=== PATIENT | male | born 2000 | race Caucasian/White ===

== ENCOUNTER 2020-01-25 12:41 | Inpatient (IN) ==
[2020-01-25] MEDS ORDERED: SODIUM CHLORIDE 0.9% 1000ML 1,000 ML IV ONE ×2 (13:10→13:32)
[2020-01-25] MEDS ORDERED: KETOROLAC 30 MG/ML VIAL IV STA (13:10)
[2020-01-25] MEDS ORDERED: ONDANSETRON INJ 2 MG/ML 2 ML VIAL IV STA (13:10)
--- NOTE | 2020-01-25 13:16 | Emergency Department Note ---
History of Present Illness General Chief Complaint: Abdominal Pain Stated Complaint: ABD PAIN, VOMITING, CHILLS Source: patient Mode of arrival: ambulatory Limitations: no limitations History of Present Illness Provider Complaint: abdominal pain Onset (ago): greater than 10 hour(s) Pain Consistency: constant Location: LLQ Radiation: L flank Migration to: no migration Severity: severe Maximum Pain Intensity: 9 Current Pain Intensity: 9 Quality: + sharp Relieved By: + movement Exacerbated By: + rest Associated Symptoms: + nausea, + vomiting, + chills and + dysuria Treatments prior to arrival: tylenol This 19-year-old male patient presents the emergency department today, ambulatory, complaining of abdominal pain which began last evening at approximately 8 PM. Patient states the pain is associated with chills and vomiting. The pain radiates to the left flank and also to the left groin. Patient states when he stands, the pain seems to radiate across the upper abdomen. The patient states earlier today, he curled up into a ball and the pain got worse and when he stretched it seemed to go away. The patient denies any recent physical activity or injury. He states he did have some dysuria last evening, but none today. He denies any documented fever. Patient denies any current hematuria, dysuria, urinary frequency, or urinary hesitancy. There is no chest pain or dyspnea. There is been no diarrhea or constipation. Last bowel movement was yesterday. Patient rates the pain a 9/10 and describes it as sharp. He did take Tylenol at 5 AM without relief. Home Medications Home Medications Medication Instructions Recorded Confirmed Type acetaminophen [Tylenol Extra 1,000 mg PO Q6H PRN 01/25/20 01/25/20 History Strength] fexofenadine [Alyce Allergy] 60 mg PO Q12H 01/25/20 01/25/20 History Allergies Allergy/AdvReac Type Severity Reaction Status Date / Time No Known Allergies Allergy Unverified 01/25/20 13:36 Past Med/Surg History Medical History No pertinent past medical history Social History Feels Safe at Home: Yes Smoking Status: Never smoker Review of Systems A total of 10 systems reviewed and were otherwise negative Physical Exam Vital Signs: Vital Signs - 24 hr 01/25/20 12:51 01/25/20 13:35 01/25/20 14:03 Temperature 37.0 C Temperature Source Oral Pulse Rate 103 H Pulse Rate [Finger ] 89 Respiratory Rate 20 20 Respiratory Effort / Characteristics Non-Labored Sponta neous Non-Labored Sponta neous Respiratory Depth Normal Normal Respiratory Patter n Regular Regular Blood Pressure 122/66 Blood Pressure [Le ft Arm] 111/59 L Blood Pressure Verenice n 84 Blood Pressure Verenice n [Left Arm] 76 Blood Pressure Pos ition [Left Arm] Lying Pulse Oximetry 96 100 99 Oxygen Delivery Me thod Room Air Room Air Room Air Sepsis Recent Feve r Within 48 Hours No Sepsis Action Take n by Nursing No Action Required 01/25/20 14:42 Temperature Temperature Source Pulse Rate Pulse Rate [Finger ] 68 Respiratory Rate 18 Respiratory Effort / Characteristics Non-Labored Sponta neous Respiratory Depth Normal Respiratory Patter n Regular Blood Pressure Blood Pressure [Le ft Arm] 105/69 Blood Pressure Verenice n Blood Pressure Verenice n [Left Arm] 81 Blood Pressure Pos ition [Left Arm] Lying Pulse Oximetry 100 Oxygen Delivery Me thod Sepsis Recent Feve r Within 48 Hours Sepsis Action Take n by Nursing Physical Exam: VITALS: Vitals are noted on the nurse's note and reviewed by myself. Vital signs stable. GENERAL: This is a 19-year-old white male, in no acute distress, nondiaphoretic, well-developed well-nourished. SKIN: The skin was without rashes, erythema, edema, or bruising. There is no tenting of the skin. Capillary refill less than 2 seconds. HEAD: Normocephalic atraumatic. EYES:Conjunctivae without injection, sclerae without icterus. NECK: Supple without nuchal rigidity. No lymphadenopathy. No JVD. HEART: Regular rate and rhythm without murmurs gallops or rubs. LUNGS: Clear to auscultation bilaterally without wheezes, rales or rhonchi. No retractions or accessory muscle use. ABDOMEN: Positive bowel sounds x 4. Normal tympanic percussion. Left lower quadrant tenderness palpation. Positive left CVA tenderness. Abdomen otherwise soft, nontender, without masses or organomegaly. Clark sign negative. No guarding or rebound tenderness. MUSCULOSKELETAL: No muscle atrophy, erythema, or edema noted. Full range of motion without joint tenderness in all extremities. No tenderness to palpation. Normal gait. Strength 5/5 throughout. NEURO: Patient was alert and oriented to person place and time. No focal neurological deficits. Course Course The patient was seen and evaluated as above. An order was placed for continuous cardiac monitoring. The monitor shows a sinus tachycardia at a rate of 103 bpm. IV access obtained, labs drawn. Patient medicated with IV fluids, Zofran, and Toradol. Imaging performed and reviewed by myself and radiologist as noted. Labs reviewed by myself. I discussed the findings with the patient at bedside. He was reassessed and not e []. []I discussed the case with my attending. Discharge instructions reviewed, the patient was discharged home in good condition. Administered Medications Discontinued Medications Sodium Chloride (Nss 1000ml) 1,000 mls @ 999 mls/hr IV .Q1H1M ONE Stop: 01/25/20 14:10 Last Infusion: 01/25/20 14:32 Dose: 0 mls/hr Documented by: [id number] Admin: 01/25/20 13:31 Dose: 999 mls/hr Documented by: [id number] Sodium Chloride (Nss 1000ml) 1,000 mls @ 999 mls/hr IV .Q1H1M ONE Stop: 01/25/20 14:32 Last Admin: 01/25/20 14:35 Dose: 999 mls/hr Documented by: [id number] Ketorolac Tromethamine (Toradol) 30 mg IV NOW STA Stop: 01/25/20 13:11 Last Admin: 01/25/20 13:31 Dose: 30 mg Documented by: [id number] Morphine Sulfate (Morphine Sulfate) 4 mg IV NOW STA Stop: 01/25/20 14:35 Last Admin: 01/25/20 14:41 Dose: 4 mg Documented by: [id number] Ondansetron HCl (Zofran) 4 mg IV NOW STA Stop: 01/25/20 13:11 Last Admin: 01/25/20 13:31 Dose: 4 mg Documented by: [id number] Medical Decision Making Differential Diagnosis + peptic ulcer disease, + biliary pathology, + UTI, + obstruction, + mesenteric ischemia, + aortic pathology, + infections, + inflammatory bowel disease, + renal colic, + torsion (male), + epididymitis (male), + abdominal pain, + appendicitis, + calculus of kidney, + constipation, + diverticulitis, + gastroenteritis, + pancreatitis and + small bowel obstruction Home Medications Current Medication List: was personally reviewed by me Laboratory Data Attestation: I reviewed the patient's lab results. Leukocytosis of 14,000. No significant anemia or thrombocytopenia. Renal, hepatic function electrolytes without significant abnormality. Lipase elevated at 1113. Result diagrams: 01/25/20 13:25 01/25/20 13:25 Lab Results 01/25/20 01/25/20 Range/Units 13:25 13:25 WBC 14.79 H (4.8-10.8) K/uL RBC 4.67 L (4.7-6.1) M/uL Hgb 14.6 (14.0-18.0) g/dL Hct 40.7 L (42-52) % MCV 87.2 (80-100) fL MCH 31.3 (25-34) pg MCHC 35.9 (32-36) g/dL RDW Std Deviation 39.5 (36.4-46.3) fL RDW Coeff of Iveth 12.4 (11.5-14.5) % Plt Count 200 (130-400) K/uL MPV 10.6 H (7.4-10.4) fL Immature Gran % (Auto) 0.6 % Neut % (Auto) 88.3 % Lymph % (Auto) 5.5 % [place] % (Auto) 5.4 % Eos % (Auto) 0.1 % Baso % (Auto) 0.1 % Neut # (Auto) 13.05 H (1.4-6.5) K/uL Lymph # (Auto) 0.82 L (1.2-3.4) K/uL [place] # (Auto) 0.80 H (0.11-0.59) K/uL Eos # (Auto) 0.01 (0-0.5) K/uL Baso # (Auto) 0.02 (0-0.2) K/uL Immature Gran # (Auto) 0.09 H (0.00-0.02) K/uL Sodium 137 (136-145) mmol/L Potassium 4.2 (3.5-5.1) mmol/L Chloride 105 (98-107) mmol/L Carbon Dioxide 25 (21-32) mmol/L Anion Gap 7.0 (3-11) BUN 15 (7-18) mg/dl Creatinine 1.00 (0.6-1.4) mg/dl Est Cr Clr Drug Dosing 115.8 ml/min Est GFR ( Amer) 125.0 Est GFR (Non-Af Amer) 107.9 BUN/Creatinine Ratio 15.1 (10-20) Glucose 119 H (70-99) mg/dl Calcium 9.4 (8.5-10.1) mg/dl Total Bilirubin 2.5 H (0.2-1) mg/dl AST 23 (15-37) U/L ALT 37 (12-78) U/L Alkaline Phosphatase 70 (45-117) U/L Total Protein 7.3 (6.4-8.2) gm/dl Albumin 4.2 (3.4-5.0) gm/dl Globulin 3.1 (2.5-4.0) gm/dl Albumin/Globulin Ratio 1.3 (0.9-2) Lipase 1113 H (73-393) U/L Imaging Data Radiologist's Impression: CT OF THE ABDOMEN AND PELVIS WITHOUT CONTRAST CLINICAL HISTORY: left flank pain COMPARISON STUDY: No previous studies for comparison. TECHNIQUE: Axial images of the abdomen and pelvis were obtained without IV contrast. Images were reviewed in the axial, sagittal, and coronal planes. Automated exposure control was utilized for the study. A dose lowering technique was utilized adhering to the principles of ALARA. FINDINGS: Lung bases are unremarkable. No pneumatosis, free air or portal venous gas is present. The bilateral renal pyramids are hyperdense. There are no ureteral calculi. There is no hydronephrosis or hydroureter. Evaluation of the abdomen and pelvis is suboptimal on this unenhanced examination. The liver, spleen, adrenal glands are unremarkable. Hypodensity within the pancreatic tail is noted. There is moderate left abdominal fluid centered on the pancreatic tail that extends into the paracolic gutter and left anterior pararenal space. No well-defined fluid collection is noted. A more well-defined 1.8 cm hypodense focus within the pancreatic tail is noted. There is no biliary or pancreatic ductal dilatation. The appendix is normal. There is no evidence for a bowel obstruction. Amount of fluid within the pelvis is noted. There are no suspicious osseous lesions. IMPRESSION: 1. Findings consistent with acute pancreatitis centered on the pancreatic tail. Moderate associated fluid. Hypodensity within the pancreatic tail. Pancreatic necrosis cannot be assessed for on unenhanced exam. No peripancreatic fluid collection. 2. Hyperdense bilateral renal pyramids. No ureteral calculi. No hydronephrosis. ACT 112: Negative or not required by law. Electronically signed by: Juan A Nicholson M.D. 01/25/2020 2:17 PM Blood Pressure Blood Pressure Findings: Normal blood pressure MDM Narrative This 19-year-old male patient presents the emergency department today for abdominal pain, vomiting, and chills which began at 8 PM last evening. The valentino ent denies any fever. Pain began in the left lower quadrant radiating to the left flank and left groin, but across his abdomen intermittently. Initial history and physical examination concerning for possible kidney stone. Work-up here in the ED consistent with acute pancreatitis. Patient was hydrated in the ED with IV fluids. He was medicated with Toradol, Zofran, and morphine for his pain. He did experience some improvement. Patient does admit to drinking 3 white claws earlier in the week, but no excessive alcohol use. He denies a history of diabetes or hypertriglyceridemia. He has not recently been on any antibiotics. The patient will be admitted to the hospitalist service for on going management and care. Please see hospitalist dictation. The chart was completed utilizing [employer] Speech voice recognition software. Grammatical errors, random word insertions, pronoun errors, and incomplete sentences are an occasional consequence of this system due to software limitations, ambient noise, and hardware issues. Any formal questions or concerns about the content, text, or information contained within the body of this dictation should be directly addressed to the provider for clarification. Impression & Plan Pancreatitis, Acute left flank pain Discharge Plan Visit Data Chief Complaint: Abdominal Pain Stated Complaint: ABD PAIN, VOMITING, CHILLS ED Provider: Curt Hope ED Midlevel Provider: Bonnie Lima Discharge Problem: Pancreatitis, Acute left flank pain Patient Disposition: Admitted As Inpatient Condition: Good Forms Stand Alone Forms: [email or web address] Prescriptions Prescriptions: No Action fexofenadine [Alyce Allergy] 60 mg Tablet 60 mg PO Q12H RF: 0 acetaminophen [Tylenol Extra Strength] 500 mg Tablet 1,000 mg PO Q6H PRN (Reason: Pain) RF: 0 Referrals Referrals: [facility] [Primary Care Provider] -
[2020-01-25 13:37] LABS: Basophils # (auto) 0.02 K/uL (0-0.2); Basophils % (auto) 0.1 %; Eosinophils # (auto) 0.01 K/uL (0-0.5); Eosinophils % (auto) 0.1 %; Hematocrit (blood only) 40.7 % (42-52); Hemoglobin 14.6 g/dL (14.0-18.0); Immature Granulocytes # (auto) 0.09 K/uL (0.00-0.02); Immature Granulocytes % (auto) 0.6 %; Lymphocytes # (auto) 0.82 K/uL (1.2-3.4); Lymphocytes % (auto) 5.5 %; Mean Corpuscular Hemoglobin 31.3 pg (25-34); Mean Corpuscular Hgb Conc 35.9 g/dL (32-36); Mean Corpuscular Volume 87.2 fL (80-100); Mean Platelet Volume 10.6 fL (7.4-10.4); Monocytes % (auto) 5.4 %; Neutrophils # (auto) 13.05 K/uL (1.4-6.5); Neutrophils % (auto) 88.3 %; Platelet Count 200 K/uL (130-400); RDW Coefficient of Variation 12.4 % (11.5-14.5); RDW Standard Deviation 39.5 fL (36.4-46.3); Red Blood Count 4.67 M/uL (4.7-6.1); White Blood Count 14.79 K/uL (4.8-10.8)
[2020-01-25 13:55] LABS: Albumin Level 4.2 gm/dl (3.4-5.0); BUN Creatinine Ratio 15.1 (10-20); Calcium 9.4 mg/dl (8.5-10.1); Creatinine Clr Calc Pharmacy 115.8 ml/min; Est GFR (Non-African American) 107.9; Potassium 4.2 mmol/L (3.5-5.1)
[2020-01-25 13:58] LABS: Albumin Globulin Ratio 1.3 (0.9-2); Bilirubin,Total 2.5 mg/dl (0.2-1); Globulin 3.1 gm/dl (2.5-4.0); Total Protein 7.3 gm/dl (6.4-8.2)
--- NOTE | 2020-01-25 14:18 | CT Scan Report ---
CT OF THE ABDOMEN AND PELVIS WITHOUT CONTRAST CLINICAL HISTORY: left flank pain COMPARISON STUDY: No previous studies for comparison. TECHNIQUE: Axial images of the abdomen and pelvis were obtained without IV contrast. Images were revi ewed in the axial, sagittal, and coronal planes. Automated exposure control was utilized for the jennifer dy. A dose lowering technique was utilized adhering to the principles of ALARA. FINDINGS: Lung bases are unremarkable. No pneumatosis, free air or portal venous gas is present. The bilateral renal pyramids are hyperdense. There are no ureteral calculi. There is no hydronephrosis or hydroureter. Evaluation of the abdomen and pelvis is suboptimal on this unenhanced examination. The liver, spleen, adrenal glands are unremarkable. Hypodensity within the pancreatic tail is noted. Ther e is moderate left abdominal fluid centered on the pancreatic tail that extends into the paracolic gu tter and left anterior pararenal space. No well-defined fluid collection is noted. A more well-define d 1.8 cm hypodense focus within the pancreatic tail is noted. There is no biliary or pancreatic ducta l dilatation. The appendix is normal. There is no evidence for a bowel obstruction. Amount of fluid w ithin the pelvis is noted. There are no suspicious osseous lesions. IMPRESSION: 1. Findings consistent with acute pancreatitis centered on the pancreatic tail. Moderate associated f luid. Hypodensity within the pancreatic tail. Pancreatic necrosis cannot be assessed for on unenhance d exam. No peripancreatic fluid collection. 2. Hyperdense bilateral renal pyramids. No ureteral calculi. No hydronephrosis. ACT 112: Negative or not required by law. Electronically signed by: Juan A Nicholson M.D. 01/25/2020 2:17 PM
[2020-01-25] MEDS ORDERED: MoRPHine SULFATE 4 MG/ML 1 ML CARP\\VIAL IV STA (14:34)
--- NOTE | 2020-01-25 15:20 | History & Physical Report ---
Date of Service January 25, 2020 Assessment & Plan (1) Pancreatitis: Patient be admitted kept n.p.o. given parenteral pain and nausea relief surveillance of his lipase will be undertaken and further evaluation of the possible necrotic pancreatitis by imaging may be undertaken with a dedicated pa ncreatic imaging test if need be gastroenterology will be involved. Lipids to be checked in the morning. Urine culture be sent as this was his inciting complaint CT abd/pelvis 01/25/20 IMPRESSION: 1. Findings consistent with acute pancreatitis centered on the pancreatic tail. Moderate associated fluid. Hypodensity within the pancreatic tail. Pancreatic necrosis cannot be assessed for on unenhanced exam. No peripancreatic fluid collection. 2. Hyperdense bilateral renal pyramids. No ureteral calculi. No hydronephrosis. History of Present Illness Primary Care Provider: [facility] 19-year-old male presents complaining of abdominal pain which began last evening at approximately 8 PM. Patient states the pain is associated with chills and vomiting. Vomitus any coffee grounds or foodstuffs. It was mostly mucousy. the pain radiates to the left flank and also to the left groin. Patient states when he stands, the pain seems to radiate across the upper abdomen. He states he did have some dysuria last evening, but none today. He denies any documented fever. Patient denies any current hematuria, dysuria, urinary frequency, or urinary hesitancy. There is no chest pain or dyspnea. There is been no diarrhea or constipation. Last bowel movement was yesterday. Patient rates the pain a 9/10 and describes it as sharp. He did take Tylenol at 5 AM without relief. He denies any recent trauma or trauma to the area and he has had modest alcohol intake 3 [place] Seltzers in the last 2 days not any [id number] medication Allergies Allergy/AdvReac Type Severity Reaction Status Date / Time No Known Allergies Allergy Unverified 01/25/20 13:36 Home Medications Home Medications Medication Instructions Recorded Confirmed Type acetaminophen [Tylenol Extra 1,000 mg PO Q6H PRN 01/25/20 01/25/20 History Strength] fexofenadine [Alyce Allergy] 60 mg PO Q12H 01/25/20 01/25/20 History Past Med/Surg History Medical History No pertinent past medical history Social History Preferred Language: Mohawk Communication Ability: Effective Aviation Safety Technician Required: No Beliefs That Will Affect Care: None Current Living Situation: Other Current Living Situation Comment: friend Other Information That Helps Us Care for You: No Feels Safe at Home: Yes Safety Concerns: Feels Safe At This Time Smoking Status: Never smoker Hx Alcohol Use: Yes Alcohol type: beer Hx Substance Use: No Review of Systems Review of Systems: Mild to moderate distress and fatigue no headache, blurry or double vision no speech or swallowing issues no chest pain, pressure or palpitations no shortness of breath, cough or wheezes Left upper quadrant abdominal pain, with mild nausea prehospital vomiting Intermittent dysuria, without hematuria or frequency no focal joint pain or swelling Left CVA tenderness without radicular pain no bruising, bleeding or rashes no focal signs of weakness or numbness or altered sensation no complaints or anxiety or depression.. Physical Exam Physical Exam: The patient appeared well nourished and normally developed. Vital signs as documented. Head exam is normocephalic atraumatic no scleral icterus Neck is without JVD, thyromegaly, or carotid bruits. Lungs are clear to auscultation, no focal loss of breath sounds Cardiac exam, Rhythm is regular.. No murmurs, rubs or gallops. Abdominal exam reveals normal bowel sounds, soft reproducible tenderness and guarding in the left upper quadrant reproducible left CVA tenderness Extremities are nonedematous and both pedal pulses are normal. Neurologic exam is alert and oriented, no focal loss of strength or sensation Skin is without bruises or rashes Psychologically is without concerns for anxiety or depression Results & Data Results & Data ([facility]) Vital Signs (Past 12 Hours) Vital Signs Temp Pulse Pulse Resp BP BP Pulse Ox 01/25/20 14:42 68 18 105/69 100 01/25/20 14:03 89 20 111/59 L 99 01/25/20 13:35 100 01/25/20 12:51 98.6 F 103 H 20 122/66 96 PG Care Time/CCT Total # of Minutes Spent Total Time Spent with Patient: Total time spent is greater than 50% in coordination of care (as documented) at patient's floor/unit and/or counseling patient: Coding Level of Care Code 12486 Initial Inpt Care Lvl 2 Diagnoses Pancreatitis K85.91 Acute pancreatitis complication: uninfected necrosis Chronicity: acute Pancreatitis type: unspecified pancreatitis type (1) Pancreatitis Acute pancreatitis complication: uninfected necrosis Chronicity: acute Pancreatitis type: unspecified pancreatitis type Qualified Code(s): K85.91 - Acute pancreatitis with uninfected necrosis, unspecified
[2020-01-25] MEDS: LACTATED RINGER'S 1,000 ML IV SCH (18:19)
[2020-01-25] MEDS: MoRPHine SULFATE 2 MG/ML CARP IV PRN ×2 (18:44→22:10)
[2020-01-25] MEDS: ENOXAPARIN INJ 40 MG/0.4 ML SYR SQ SCH (20:30)
[2020-01-25] MEDS: PROMETHAZINE HCL 12.5 MG in SODIUM CHLORIDE 0.9% 50 ML IV PRN (22:05)
[2020-01-25 23:34] LABS: Appearance Urine Clear (Clear); Bilirubin Urine Negative (Negative); Blood Urine Negative (Negative); Color Urine Yellow; Glucose Urine UA Negative (Negative); Ketones Urine Negative (Negative); Leukocyte Esterase Urine Negative (Negative); Nitrite Urine Negative (Negative); Protein Urine Negative (Negative); Specific Gravity Urine 1.017 (1.000-1.030); Urobilinogen Urine Negative (Negative); pH Urine 6.5 (4.5-7.5)
[2020-01-26] MEDS: LACTATED RINGER'S 1,000 ML IV SCH ×4 (03:36→23:12)
[2020-01-26] MEDS: MoRPHine SULFATE 4 MG/ML 1 ML CARP\\VIAL IV PRN ×2 (03:36→07:59)
[2020-01-26 07:02] LABS: Albumin Level 3.1 gm/dl (3.4-5.0); BUN Creatinine Ratio 13.8 (10-20); Calcium 8.4 mg/dl (8.5-10.1); Creatinine Clr Calc Pharmacy 134.7 ml/min; Est GFR (African American) 144.7; Est GFR (Non-African American) 124.8; Potassium 3.9 mmol/L (3.5-5.1)
[2020-01-26 07:07] LABS: Albumin Globulin Ratio 1.1 (0.9-2); Bilirubin,Total 3.7 mg/dl (0.2-1); Globulin 2.8 gm/dl (2.5-4.0); Total Protein 5.9 gm/dl (6.4-8.2)
[2020-01-26] MEDS: ONDANSETRON INJ 2 MG/ML 2 ML VIAL IV PRN (09:32)
[2020-01-26 10:54] LABS: Basophils # (auto) 0.02 K/uL (0-0.2); Basophils % (auto) 0.1 %; Eosinophils # (auto) 0.01 K/uL (0-0.5); Eosinophils % (auto) 0.1 %; Hematocrit (blood only) 36.6 % (42-52); Hemoglobin 12.5 g/dL (14.0-18.0); Immature Granulocytes # (auto) 0.04 K/uL (0.00-0.02); Immature Granulocytes % (auto) 0.3 %; Mean Corpuscular Hemoglobin 30.9 pg (25-34); Mean Corpuscular Hgb Conc 34.2 g/dL (32-36); Mean Corpuscular Volume 90.4 fL (80-100); Mean Platelet Volume 10.6 fL (7.4-10.4); Monocytes # (auto) 1.57 K/uL (0.11-0.59); Monocytes % (auto) 10.2 %; Neutrophils # (auto) 11.71 K/uL (1.4-6.5); Neutrophils % (auto) 76.3 %; Platelet Count 162 K/uL (130-400); RDW Coefficient of Variation 12.6 % (11.5-14.5); RDW Standard Deviation 41.8 fL (36.4-46.3); Red Blood Count 4.05 M/uL (4.7-6.1); White Blood Count 15.35 K/uL (4.8-10.8)
--- NOTE | 2020-01-26 12:47 | Hospitalist Progress Note ---
Date of Service January 26, 2020 Assessment & Plan (1) Pancreatitis: Patient presents with acute left upper quadrant abdominal pain, nausea/vomiting, and chills. Found to have acute pancreatitis in the tail the pancreas on an unenhanced CT scan-unable to identify if necrosis. Did have leukocytosis and lipase was elevated at 1113. Gallbladder appears normal and no bile or pancreatic duct dilatation on CT of the abdomen/pelvis He drank 3 alcoholic beverages 3 days prior to the symptoms, but otherwise reports no alcohol use for a long time before that. His triglycerides here are normal at 63. His calcium level was normal on admission. There is no family history of pancreatitis and he has no prior personal history of pancreatitis or gallbladder issues. Total bilirubin was elevated on admission at 2.5 and is further elevated today to 3.7 but it is all indirect bilirubin. Otherwise LFTs are all normal. Lipase is trending downward to 444. Leukocytosis has worsened today to 15. He had spiking fevers overnight He has been hydrated overnight and given IV morphine as needed for pain without much improvement. He is still having nausea but no further vomiting. He has an ileus with no bowel movement in 2 days but has not eaten much. -Add on Toradol 15 mg IV every 6 hours as needed for pain -Continue morphine as needed -Increase IV fluids 200 mL's per hour -Given fevers, will check blood cultures and start IV Zosyn, but could be viral -Consult gastroenterology -Order MRCP to further evaluate for obstruction or pancreas divisum, pancreatic duct obstruction -Follow LFTs, BMP, CBC (2) Hyperbilirubinemia: As above, all indirect and could be Gilbert's, but getting MRCP as above (3) Leukocytosis: As above, (4) Fever: As above, could be related to pancreatitis or cholecystitis? Could be a viral induced pancreatitis? -will check blood cultures, start empiric Zosyn -Checking MRCP -No exposures to COVID so does not seem likely especially given that he has findings to explain his symptoms otherwise (5) DVT prophylaxis: SQ Lovenox Disposition-continued stay Admission and Anticipated Discharge Date Admission Date: January 25, 2020 Subjective Patient reports he is still having left upper quadrant and epigastric abdominal pain sometimes rating through to the back. The severity still 7-8 out of 10 after receiving pain meds. Overall, he feels a little bit better after getting pain meds, but does not feel he is any improved from yesterday. He is still having some nausea but no vomiting since yesterday. He has not moved his bowels in 2 days. He denies chest pain but has been feeling a little short of breath last few days as it is painful to take a deep breath. He states he is nervous to have his gallbladder removed if that ends up being the problem. Denies any family history of pancreatitis or gallbladder issues. Review of Systems Review of Systems: All systems reviewed & are unremarkable except as noted in HPI & below He is having some generalized body aches, has occasional chills but no documented fever. Denies taking any recent [id number] supplements Physical Exam Constitutional: WD/WN, vitals as above Eyes: + anicteric sclerae Neck: trachea midline, no thyromegaly Respiratory: normal respiratory effort, lungs clear to auscultation Cardiovascular: RRR, no murmur, no edema Chest (Breasts): Chest: normal inspection of chest Gastrointestinal (Abdomen): Inspection/Auscultation: + hypoactive bowel sounds; abdomen not distended Percussion/Palpation: + abdomen tender (In the epigastric and LUQ regions without guarding or rebound) and abdomen soft; no hepatosplenomegaly and no hernia Musculoskeletal: Extremities: extremities normal to inspection; no cyanosis and no clubbing Skin: no rashes, warm and dry Neurologic: moves all extremities and awake; no focal motor deficits Psychiatric: A+Ox3, euthymic affect Lymphatic: no lymphedema Results & Data Results & Data ([facility]) Vital Signs (Past 12 Hours) Vital Signs Temp Pulse Pulse Resp BP BP Pulse Ox 01/26/20 09:38 36.6 C 100 H 16 108/52 L 95 01/26/20 07:46 38.1 C H 101 H 18 96/50 L 96 Laboratory Results 01/26/20 01/26/20 01/26/20 Range/Units 10:37 10:37 06:11 WBC 15.35 H (4.8-10.8) K/uL RBC 4.05 L (4.7-6.1) M/uL Hgb 12.5 L (14.0-18.0) g/dL Hct 36.6 L (42-52) % MCV 90.4 (80-100) fL MCH 30.9 (25-34) pg MCHC 34.2 (32-36) g/dL RDW Std Deviation 41.8 (36.4-46.3) fL RDW Coeff of Iveth 12.6 (11.5-14.5) % Plt Count 162 (130-400) K/uL MPV 10.6 H (7.4-10.4) fL Immature Gran % (Auto) 0.3 % Neut % (Auto) 76.3 % Lymph % (Auto) 13.0 % [place] % (Auto) 10.2 % Eos % (Auto) 0.1 % Baso % (Auto) 0.1 % Neut # (Auto) 11.71 H (1.4-6.5) K/uL Lymph # (Auto) 2.00 (1.2-3.4) K/uL [place] # (Auto) 1.57 H (0.11-0.59) K/uL Eos # (Auto) 0.01 (0-0.5) K/uL Baso # (Auto) 0.02 (0-0.2) K/uL Immature Gran # (Auto) 0.04 H (0.00-0.02) K/uL Sodium 141 (136-145) mmol/L Potassium 3.9 (3.5-5.1) mmol/L Chloride 112 H (98-107) mmol/L Carbon Dioxide 26 (21-32) mmol/L Anion Gap 3.0 (3-11) BUN 12 (7-18) mg/dl Creatinine 0.86 (0.6-1.4) mg/dl Est Cr Clr Drug Dosing 134.7 ml/min Est GFR ( Amer) 144.7 Est GFR (Non-Af Amer) 124.8 BUN/Creatinine Ratio 13.8 (10-20) Glucose 83 (70-99) mg/dl Calcium 8.4 L (8.5-10.1) mg/dl Total Bilirubin 3.7 H (0.2-1) mg/dl Direct Bilirubin 0.2 (0-0.2) mg/dl AST 15 (15-37) U/L ALT 25 (12-78) U/L Alkaline Phosphatase 51 (45-117) U/L Total Protein 5.9 L (6.4-8.2) gm/dl Albumin 3.1 L (3.4-5.0) gm/dl Globulin 2.8 (2.5-4.0) gm/dl Albumin/Globulin Ratio 1.1 (0.9-2) Triglycerides 63 (0-150) mg/dl Cholesterol 77 (0-200) mg/dl LDL Cholesterol, Calc 24 mg/dl VLDL Cholesterol, Calc 13 mg/dl HDL Cholesterol 40 mg/dl Cholesterol/HDL Ratio 2 Lipase 444 H (73-393) U/L Urine Color Urine Appearance (Clear) Urine pH (4.5-7.5) Ur Specific [place] (1.000-1.030) Urine Protein (Negative) Urine Glucose (UA) (Negative) Urine Ketones (Negative) Urine Blood (Negative) Urine Nitrite (Negative) Urine Bilirubin (Negative) Urine Urobilinogen (Negative) Ur Leukocyte Esterase (Negative) 01/25/20 01/25/20 01/25/20 Range/Units Unknown 13:25 13:25 WBC 14.79 H (4.8-10.8) K/uL RBC 4.67 L (4.7-6.1) M/uL Hgb 14.6 (14.0-18.0) g/dL Hct 40.7 L (42-52) % MCV 87.2 (80-100) fL MCH 31.3 (25-34) pg MCHC 35.9 (32-36) g/dL RDW Std Deviation 39.5 (36.4-46.3) fL RDW Coeff of Iveth 12.4 (11.5-14.5) % Plt Count 200 (130-400) K/uL MPV 10.6 H (7.4-10.4) fL Immature Gran % (Auto) 0.6 % Neut % (Auto) 88.3 % Lymph % (Auto) 5.5 % [place] % (Auto) 5.4 % Eos % (Auto) 0.1 % Baso % (Auto) 0.1 % Neut # (Auto) 13.05 H (1.4-6.5) K/uL Lymph # (Auto) 0.82 L (1.2-3.4) K/uL [place] # (Auto) 0.80 H (0.11-0.59) K/uL Eos # (Auto) 0.01 (0-0.5) K/uL Baso # (Auto) 0.02 (0-0.2) K/uL Immature Gran # (Auto) 0.09 H (0.00-0.02) K/uL Sodium 137 (136-145) mmol/L Potassium 4.2 (3.5-5.1) mmol/L Chloride 105 (98-107) mmol/L Carbon Dioxide 25 (21-32) mmol/L Anion Gap 7.0 (3-11) BUN 15 (7-18) mg/dl Creatinine 1.00 (0.6-1.4) mg/dl Est Cr Clr Drug Dosing 115.8 ml/min Est GFR ( Amer) 125.0 Est GFR (Non-Af Amer) 107.9 BUN/Creatinine Ratio 15.1 (10-20) Glucose 119 H (70-99) mg/dl Calcium 9.4 (8.5-10.1) mg/dl Total Bilirubin 2.5 H (0.2-1) mg/dl Direct Bilirubin (0-0.2) mg/dl AST 23 (15-37) U/L ALT 37 (12-78) U/L Alkaline Phosphatase 70 (45-117) U/L Total Protein 7.3 (6.4-8.2) gm/dl Albumin 4.2 (3.4-5.0) gm/dl Globulin 3.1 (2.5-4.0) gm/dl Albumin/Globulin Ratio 1.3 (0.9-2) Triglycerides (0-150) mg/dl Cholesterol (0-200) mg/dl LDL Cholesterol, Calc mg/dl VLDL Cholesterol, Calc mg/dl HDL Cholesterol mg/dl Cholesterol/HDL Ratio Lipase 1113 H (73-393) U/L Urine Color Yellow Urine Appearance Clear (Clear) Urine pH 6.5 (4.5-7.5) Ur Specific [place] 1.017 (1.000-1.030) Urine Protein Negative (Negative) Urine Glucose (UA) Negative (Negative) Urine Ketones Negative (Negative) Urine Blood Negative (Negative) Urine Nitrite Negative (Negative) Urine Bilirubin Negative (Negative) Urine Urobilinogen Negative (Negative) Ur Leukocyte Esterase Negative (Negative) PG Care Time/CCT Total # of Minutes Spent Total Time Spent with Patient: Total time spent is greater than 50% in coordination of care (as documented) at patient's floor/unit and/or counseling patient: Coding Level of Care Code 84677 Subseq Hosp Care Lvl 3 Diagnoses Pancreatitis K85.91 Acute pancreatitis complication: uninfected necrosis Chronicity: acute Pancreatitis type: unspecified pancreatitis type Hyperbilirubinemia E80.6 Leukocytosis D72.829 Fever R50.9 DVT prophylaxis Z29.9 (1) Pancreatitis Acute pancreatitis complication: uninfected necrosis Chronicity: acute Pancreatitis type: unspecified pancreatitis type Qualified Code(s): K85.91 - Acute pancreatitis with uninfected necrosis, unspecified
[2020-01-26] MEDS ORDERED: PIPERACILL/TAZOBAC CONSULT ACTIVE PRN (13:02)
[2020-01-26] MEDS ORDERED: PIPERACILLIN/TAZOBACTAM 3.375 GM in DEXTROSE 5% 100 ML IV ONE (13:30)
[2020-01-26] MEDS: KETOROLAC TROMETHAMINE 15 MG/ML VIAL IV PRN ×2 (13:34→21:44)
[2020-01-26] MEDS: metroNIDAZOLE 500 MG/100 ML BAG IV SCH ×2 (14:32→22:05)
[2020-01-26] MEDS: CIPROFLOXACIN / D5W 400 MG/200 ML BAG IV SCH (14:35)
[2020-01-26] MEDS: HYDROmorphone INJ 0.5 MG/0.5 ML SYR IV PRN ×2 (17:17→20:02)
[2020-01-26] MEDS ORDERED: PIPERACILLIN/TAZOBACTAM 3.375 GM in DEXTROSE 5% 100 ML IV SCH (18:00)
--- NOTE | 2020-01-26 19:45 | Magnetic Resonance Report ---
MRCP CLINICAL HISTORY: pancreatitis,hyperbilirubinemia TECHNIQUE: Utilizing a 1.5 Bev magnet and dedicated coil, multiplanar, multiecho imaging of the [facility] er abdomen was performed utilizing heavily T2 weighted pulsing sequences without IV contrast. COMPARISON STUDY: CT of the abdomen and pelvis January 25, 2020. FINDINGS: There is no intra or extrahepatic biliary ductal dilatation. The common bile duct measures 5 mm in caliber. No common bile duct calculi are identified. The course and caliber of the main pancr eatic duct is normal. Fluid centered on the pancreatic tail is again noted. This extends into the lef t paracolic gutter and anterior pararenal space. This is similar to prior CT. No peripancreatic fluid collection is present. No definite gallstones are identified. There is trace pericholecystic fluid. Gallbladder is mildly distended. There is equivocal sludge within the gallbladder. No abdominal lymph adenopathy is noted. The caliber of visualized small and large bowel are normal. IMPRESSION: 1. No biliary ductal dilatation. No common bile duct calculi. 2. No significant change in findings consistent with acute pancreatitis. 3. Mild gallbladder distention with trace pericholecystic fluid. Possible sludge within the gallbladd er. No gallbladder wall thickening. A right upper quadrant ultrasound could be obtained. ACT 112: Negative or not required by law. Electronically signed by: Juan A Nicholson M.D. 01/26/2020 7:44 PM
[2020-01-26] MEDS ORDERED: LACTATED RINGER'S 500 ML IV ONE (19:49)
[2020-01-26] MEDS: ENOXAPARIN INJ 40 MG/0.4 ML SYR SQ SCH (20:05)
[2020-01-26] MEDS: PROMETHAZINE HCL 12.5 MG in SODIUM CHLORIDE 0.9% 50 ML IV PRN (21:35)
[2020-01-27] MEDS ORDERED: ACETAMINOPHEN 325 MG TAB PO PRN (00:41)
[2020-01-27] MEDS: HYDROmorphone INJ 0.5 MG/0.5 ML SYR IV PRN ×5 (01:32→23:54)
[2020-01-27] MEDS: CIPROFLOXACIN / D5W 400 MG/200 ML BAG IV SCH ×2 (01:33→14:00)
[2020-01-27] MEDS: LACTATED RINGER'S 1,000 ML IV SCH ×4 (04:47→22:43)
[2020-01-27] MEDS: metroNIDAZOLE 500 MG/100 ML BAG IV SCH ×3 (05:22→21:28)
[2020-01-27 06:04] LABS: Basophils # (auto) 0.02 K/uL (0-0.2); Basophils % (auto) 0.2 %; Eosinophils # (auto) 0.08 K/uL (0-0.5); Eosinophils % (auto) 0.6 %; Hematocrit (blood only) 33.6 % (42-52); Hemoglobin 11.7 g/dL (14.0-18.0); Immature Granulocytes # (auto) 0.03 K/uL (0.00-0.02); Immature Granulocytes % (auto) 0.2 %; Lymphocytes # (auto) 1.95 K/uL (1.2-3.4); Lymphocytes % (auto) 14.8 %; Mean Corpuscular Hemoglobin 31.1 pg (25-34); Mean Corpuscular Hgb Conc 34.8 g/dL (32-36); Mean Corpuscular Volume 89.4 fL (80-100); Mean Platelet Volume 10.3 fL (7.4-10.4); Monocytes # (auto) 1.66 K/uL (0.11-0.59); Monocytes % (auto) 12.6 %; Neutrophils # (auto) 9.45 K/uL (1.4-6.5); Neutrophils % (auto) 71.6 %; Platelet Count 139 K/uL (130-400); RDW Coefficient of Variation 12.3 % (11.5-14.5); RDW Standard Deviation 39.6 fL (36.4-46.3); Red Blood Count 3.76 M/uL (4.7-6.1); White Blood Count 13.19 K/uL (4.8-10.8)
[2020-01-27 06:37] LABS: Albumin Level 2.7 gm/dl (3.4-5.0); BUN Creatinine Ratio 10.2 (10-20); Bilirubin Direct 0.3 mg/dl (0-0.2); Calcium 8.3 mg/dl (8.5-10.1); Creatinine Clr Calc Pharmacy 130.1 ml/min; Est GFR (African American) 142.7; Est GFR (Non-African American) 123.1; Potassium 3.8 mmol/L (3.5-5.1)
[2020-01-27 06:42] LABS: Bilirubin,Total 4.6 mg/dl (0.2-1); Total Protein 5.7 gm/dl (6.4-8.2)
[2020-01-27] MEDS: KETOROLAC TROMETHAMINE 15 MG/ML VIAL IV PRN (07:29)
--- NOTE | 2020-01-27 09:32 | Ultrasound Report ---
US gallbladder CLINICAL HISTORY: possible acute cholecystitis COMPARISON STUDY: CT of the abdomen and pelvis January 25, 2020. MRCP January 26, 2020. FINDINGS: Liver is sonographically normal. No gallstones are identified. There is sludge within the g allbladder. Mild gallbladder wall thickening is noted. No gallstones were identified. Pericholecystic fluid is noted. There is no biliary ductal dilatation. The common bile duct measures 5 mm in caliber . There is no right hydronephrosis. IMPRESSION: 1. Sludge within the gallbladder. Mild gallbladder wall thickening. No gallstones identified. These f indings are not strongly suggestive of acute cholecystitis although a hepatobiliary scan could be obt ained. 2. Peripancreatic fluid consistent with acute pancreatitis as shown on CT and MRI. 3. No biliary ductal dilatation. ACT 112: Negative or not required by law. Electronically signed by: Juan A Nicholson M.D. 01/27/2020 9:31 AM
--- NOTE | 2020-01-27 13:02 | Hospitalist Progress Note ---
Date of Service January 27, 2020 Assessment & Plan (1) Pancreatitis: Patient presents with acute left upper quadrant abdominal pain, nausea/vomiting, and chills and with fever here. Found to have acute pancreatitis in the tail the pancreas on an unenhanced CT scan-unable to identify if necrosis. Did have leukocytosis and lipase was elevated at 1113. Gallbladder appears normal and no bile or pancreatic duct dilatation on CT of the abdomen/pelvis He drank 3 alcoholic beverages 3 days prior to the symptoms, but otherwise reports no alcohol use for a long time before that. His triglycerides here are normal at 63. His calcium level was normal on admission. There is no family history of pancreatitis and he has no prior personal history of pancreatitis or gallbladder issues. Total bilirubin was elevated on admission at 2.5 and continues to rise each day, now 4.6--> but it is all indirect bilirubin. Otherwise LFTs are all normal. Lipase has trended downward to normal Leukocytosis at 15 and now trending downward since being on abx to 13k BCxs NGTD Fever resolved just a low grade temp last evening MRCP 01/25 with pancreatitis and possible acute adrian, no obstruction, no divisum RUQ US ordered today and shows sludge, normal CBD, mild thickened wall and distension, possible acute adrian Overall feeling better now on abx, IVFs, pain meds -ok to advance diet to clears today and then NPO after midnight for HIDA tomorrow -continue pain control w/ Toradol 15 mg IV every 6 hours as needed, IV dilaudid prn -decrease IV fluids of LR to 150 mL's per hour -follow blood cultures -continue Cipro and Flagyl until acute adrian ruled out with HIDA -Consult gastroenterology appreciated -Follow LFTs, BMP, CBC (2) Hyperbilirubinemia: As above, all indirect and could be Gilbert's with rising TBili in setting of fasting and stress No obstruction on imaging noted and all other LFTs normal Follow LFTs (3) Leukocytosis: As above,improving on abx -follow CBC (4) Fever: As above, could be related to pancreatitis or acute cholecystitis no other signs/symptoms of infection Improving -follow blood cultures -continue empiric abx as above -No exposures to COVID so does not seem likely especially given that he has findings to explain his symptoms otherwise (5) Anxiety about health: worried about being in hospital, anxious -add hydroxyzine prn -he wants to focus on calming strategies prior to trying medication -advised ambulation around halls (6) DVT prophylaxis: SQ Lovenox Disposition-continued stay Admission and Anticipated Discharge Date Admission Date: January 25, 2020 Subjective Pt feeling better today, less pain but still taking IV dilaudid and toradol. Low grade fever last night. No BM in 3 days, is making urine. Is feeling hungry. Still quite anxious about being in the hospital. Discussed his care with GI at the bedside. Review of Systems Review of Systems: All systems reviewed & are unremarkable except as noted in HPI & below denies CP or SOB Physical Exam Constitutional: WD/WN, vitals as above Eyes: + anicteric sclerae Neck: trachea midline, no thyromegaly Respiratory: normal respiratory effort, lungs clear to auscultation Cardiovascular: RRR, no murmur, no edema Chest (Breasts): Chest: normal inspection of chest Gastrointestinal (Abdomen): Inspection/Auscultation: + hypoactive bowel sounds; abdomen not distended Percussion/Palpation: + abdomen tender (In the LUQ region without guarding or rebound) and abdomen soft; no hepatosplenomegaly and no hernia Musculoskeletal: Extremities: extremities normal to inspection; no cyanosis and no clubbing Skin: no rashes, warm and dry Neurologic: moves all extremities and awake; no focal motor deficits Psychiatric: Orientation: alert and oriented x 3 Eye Contact: good eye contact Speech: normal rate/rhythm/volume of speech Affect: + anxious affect Mood: + anxious mood Estimated Intelligence: + above average estimated intelligence Judgement: good judgement Lymphatic: no lymphedema Results & Data Results & Data ([facility]) Vital Signs (Past 12 Hours) Vital Signs Temp Pulse Resp BP BP Pulse Ox 01/27/20 12:12 37.1 C 75 16 107/66 97 01/27/20 07:23 37.6 C H 95 H 16 105/60 95 01/27/20 03:32 37.2 C 91 H 14 95/53 L 96 Laboratory Results 01/27/20 01/27/20 Range/Units 05:42 05:42 WBC 13.19 H (4.8-10.8) K/uL RBC 3.76 L (4.7-6.1) M/uL Hgb 11.7 L (14.0-18.0) g/dL Hct 33.6 L (42-52) % MCV 89.4 (80-100) fL MCH 31.1 (25-34) pg MCHC 34.8 (32-36) g/dL RDW Std Deviation 39.6 (36.4-46.3) fL RDW Coeff of Iveth 12.3 (11.5-14.5) % Plt Count 139 (130-400) K/uL MPV 10.3 (7.4-10.4) fL Immature Gran % (Auto) 0.2 % Neut % (Auto) 71.6 % Lymph % (Auto) 14.8 % [place] % (Auto) 12.6 % Eos % (Auto) 0.6 % Baso % (Auto) 0.2 % Neut # (Auto) 9.45 H (1.4-6.5) K/uL Lymph # (Auto) 1.95 (1.2-3.4) K/uL [place] # (Auto) 1.66 H (0.11-0.59) K/uL Eos # (Auto) 0.08 (0-0.5) K/uL Baso # (Auto) 0.02 (0-0.2) K/uL Immature Gran # (Auto) 0.03 H (0.00-0.02) K/uL Sodium 141 (136-145) mmol/L Potassium 3.8 (3.5-5.1) mmol/L Chloride 108 H (98-107) mmol/L Carbon Dioxide 27 (21-32) mmol/L Anion Gap 6.0 (3-11) BUN 9 (7-18) mg/dl Creatinine 0.89 (0.6-1.4) mg/dl Est Cr Clr Drug Dosing 130.1 ml/min Est GFR ( Amer) 142.7 Est GFR (Non-Af Amer) 123.1 BUN/Creatinine Ratio 10.2 (10-20) Glucose 89 (70-99) mg/dl Calcium 8.3 L (8.5-10.1) mg/dl Total Bilirubin 4.6 H (0.2-1) mg/dl Direct Bilirubin 0.3 H (0-0.2) mg/dl AST 13 L (15-37) U/L ALT 19 (12-78) U/L Alkaline Phosphatase 44 L (45-117) U/L Total Protein 5.7 L (6.4-8.2) gm/dl Albumin 2.7 L (3.4-5.0) gm/dl Lipase 147 (73-393) U/L Diagnostic Findings RUQ US with sludge, no stones, CBD normal, mild thickened wall PG Care Time/CCT Total # of Minutes Spent Total Time Spent with Patient: Total time spent is greater than 50% in coordination of care (as documented) at patient's floor/unit and/or counseling patient: Coding Level of Care Code 11764 Subseq Hosp Care Lvl 3 Diagnoses Pancreatitis K85.91 Acute pancreatitis complication: uninfected necrosis Chronicity: acute Pancreatitis type: unspecified pancreatitis type Hyperbilirubinemia E80.6 Leukocytosis D72.829 Fever R50.9 Anxiety about health F41.8 DVT prophylaxis Z29.9 (1) Pancreatitis Acute pancreatitis complication: uninfected necrosis Chronicity: acute Pancreatitis type: unspecified pancreatitis type Qualified Code(s): K85.91 - Acute pancreatitis with uninfected necrosis, unspecified
--- NOTE | 2020-01-27 13:40 | Gastrointestinal Consultation ---
Date of Consultation January 27, 2020 Assessment & Plan (1) Pancreatitis: (2) Hyperbilirubinemia: Recommend HIDA scan for further evaluation of pain and abnormalities seen on imaging, though doubt it is acute cholecystitis. Advance diet to clear liquids Continue supportive care with IVF and analgesics as needed Elevated indirect hyperbilirubinemia is most likely secondary to Gilbert's syndrome, a benign condition. I have discussed this case in detail with Dr. Pedraza. History of Present Illness Reason for Consultation: Acute pancreatitis Attending Physician: Za Pedraza MD History of Present Illness Olvin Hall is a 19 yo CM who presented to the ER on 01/24 with severe abdominal pain, nausea and vomiting. He was subsequently found to have an elevated lipase, bilirubin and CT evidence of acute pancreatitis involving the pancreatic tail. He was subsequently admitted, kept NPO, aggressively rehydrated, and started on IV Abx due to fever and slight elevation of his WBC count. During his hospital course he has had a slow improvement in his pain, and did undergo MRCP and RUQ US which showed only mild GB wall thickening with some sludge, but no evidence of biliary or pancreatic ductal dilation. He denies ever having been diagnosed with pancreatitis in the past, and states that he only drinks occasionally and not heavily. At the time that I saw him, he was continuing to have 3/10 LUQ abdominal pain, described as an ache, non-radiating, with some improvement with Toradol and dilaudid. He denies any further episodes of nausea, vomiting, fevers, chills, or other complaints. He is asking if her can eat something. Allergies Allergy/AdvReac Type Severity Reaction Status Date / Time No Known Allergies Allergy Unverified 01/25/20 13:36 Home Medications Home Medications Medication Instructions Recorded Confirmed Type acetaminophen [Tylenol Extra 1,000 mg PO Q6H PRN 01/25/20 01/25/20 History Strength] fexofenadine [Alyce Allergy] 60 mg PO Q12H 01/25/20 01/25/20 History Patient History Medical History No pertinent past medical history Social History Preferred Language: Danish Communication Ability: Effective Agile Scrum Master Required: No Beliefs That Will Affect Care: None Current Living Situation: Other Current Living Situation Comment: friend Other Information That Helps Us Care for You: No Feels Safe at Home: Yes Safety Concerns: Feels Safe At This Time Smoking Status: Never smoker Hx Alcohol Use: Yes Alcohol type: beer Hx Substance Use: No Review of Systems Constitutional: as per Subjective / HPI Eyes: as per Subjective / HPI Ear, Nose, Mouth, Throat: as per Subjective / HPI Respiratory: as per Subjective / HPI Cardiovascular: as per Subjective / HPI Gastrointestinal: as per Subjective / HPI Musculoskeletal: as per Subjective / HPI Integumentary: as per Subjective / HPI Neurologic: as per Subjective / HPI Psychiatric: as per Subjective / HPI Endocrine: as per Subjective / HPI Hematologic / Lymphatic: as per Subjective / HPI Allergy / Immunological: as per Subjective / HPI Physical Exam Constitutional: WD/WN, vitals as above Eyes: PERRL, conjunctivae normal, anicteric sclerae ENMT: external ear and nose normal, oropharynx normal Neck: trachea midline, no thyromegaly Respiratory: normal respiratory effort, lungs clear to auscultation Cardiovascular: RRR, no murmur, no edema Gastrointestinal (Abdomen): normal bowel sounds, soft, nontender, no hepatosplenomegaly Musculoskeletal: no cyanosis or clubbing, extremities motor strength 5/5 Skin: no rashes, warm and dry Psychiatric: A+Ox3, euthymic affect Results & Data ([facility]) Vital Signs (Past 12 Hours) Vital Signs Temp Pulse Resp BP BP Pulse Ox 01/27/20 12:12 37.1 C 75 16 107/66 97 01/27/20 07:23 37.6 C H 95 H 16 105/60 95 01/27/20 03:32 37.2 C 91 H 14 95/53 L 96 PG Care Time/CCT Total # of Minutes Spent Total Time Spent with Patient: Total time spent is greater than 50% in coordination of care (as documented) at patient's floor/unit and/or counseling patient: Coding Level of Care Code 40102 Inpt Consult Level 3 Diagnoses Pancreatitis K85.91 Acute pancreatitis complication: uninfected necrosis Chronicity: acute Pancreatitis type: unspecified pancreatitis type Hyperbilirubinemia E80.6 (1) Pancreatitis Acute pancreatitis complication: uninfected necrosis Chronicity: acute Pancreatitis type: unspecified pancreatitis type Qualified Code(s): K85.91 - Acute pancreatitis with uninfected necrosis, unspecified
[2020-01-27] MEDS: ONDANSETRON INJ 2 MG/ML 2 ML VIAL IV PRN (13:49)
[2020-01-27] MEDS: ENOXAPARIN INJ 40 MG/0.4 ML SYR SQ SCH (17:19)
[2020-01-28] MEDS: CIPROFLOXACIN / D5W 400 MG/200 ML BAG IV SCH ×2 (01:55→14:00)
[2020-01-28] MEDS: HYDROmorphone INJ 0.5 MG/0.5 ML SYR IV PRN ×2 (03:35→13:46)
[2020-01-28] MEDS: ONDANSETRON INJ 2 MG/ML 2 ML VIAL IV PRN (04:20)
[2020-01-28] MEDS: LACTATED RINGER'S 1,000 ML IV SCH ×3 (04:58→13:51)
[2020-01-28] MEDS: metroNIDAZOLE 500 MG/100 ML BAG IV SCH ×3 (06:10→22:23)
[2020-01-28 06:16] LABS: Basophils # (auto) 0.02 K/uL (0-0.2); Basophils % (auto) 0.3 %; Eosinophils % (auto) 1.3 %; Hematocrit (blood only) 31.4 % (42-52); Hemoglobin 11.2 g/dL (14.0-18.0); Immature Granulocytes # (auto) 0.03 K/uL (0.00-0.02); Immature Granulocytes % (auto) 0.4 %; Lymphocytes # (auto) 1.86 K/uL (1.2-3.4); Lymphocytes % (auto) 24.4 %; Mean Corpuscular Hemoglobin 31.4 pg (25-34); Mean Corpuscular Hgb Conc 35.7 g/dL (32-36); Mean Platelet Volume 10.3 fL (7.4-10.4); Monocytes # (auto) 0.67 K/uL (0.11-0.59); Monocytes % (auto) 8.8 %; Neutrophils # (auto) 4.94 K/uL (1.4-6.5); Neutrophils % (auto) 64.8 %; Platelet Count 140 K/uL (130-400); RDW Coefficient of Variation 12.3 % (11.5-14.5); RDW Standard Deviation 39.6 fL (36.4-46.3); Red Blood Count 3.57 M/uL (4.7-6.1); White Blood Count 7.62 K/uL (4.8-10.8)
[2020-01-28 06:57] LABS: Alanine Aminotransferase 18 U/L (12-78); Albumin Level 2.7 gm/dl (3.4-5.0); Aspartate Aminotransferase 11 U/L (15-37); BUN Creatinine Ratio 7.6 (10-20); Bilirubin Direct 0.3 mg/dl (0-0.2); Blood Urea Nitrogen 6 mg/dl (7-18); Calcium 8.2 mg/dl (8.5-10.1); Carbon Dioxide 28 mmol/L (21-32); Chloride 110 mmol/L (98-107); Creatinine Clr Calc Pharmacy 148.5 ml/min; Est GFR (African American) > 150.0; Est GFR (Non-African American) 129.9; Glucose 86 mg/dl (70-99); Potassium 3.5 mmol/L (3.5-5.1); Sodium 142 mmol/L (136-145)
[2020-01-28 07:15] LABS: Alkaline Phosphatase 43 U/L (45-117); Bilirubin,Total 2.7 mg/dl (0.2-1); Total Protein 5.9 gm/dl (6.4-8.2)
--- NOTE | 2020-01-28 10:35 | Gastroenterology Progress Note ---
Date of Service January 28, 2020 Assessment & Plan (1) Pancreatitis: (2) Hyperbilirubinemia: Await HIDA as ordered. NPO until after imaging. Continue supportive care with IVF and analgesics as needed. Further recommendations pending results of testing. Admission and Anticipated Discharge Date Admission Date: January 25, 2020 Supervising Physician Co-Signing Physician Notes Agree with TRACEE Osorio as above Abd: Soft, NT, ND, +BS Patient still with complaints of pain, though abd exam is benign Advance to low fat diet Consult surgery due to abnormal HIDA, however, no need for urgent surgical intervention at present Continue supportive care Subjective Patient has pending HIDA scan scheduled for 1030 this morning. He reports ongoing epigastric and RUQ pain. Rates the pain as 6/10 at present. No alleviating factors. Remains NPO this morning. Mild nausea but no vomiting. No overt GIB sx. TB is trending down. Review of Systems Review of Systems: All systems reviewed & are unremarkable except as noted in HPI & below Physical Exam Constitutional: WD/WN, vitals as above well developed and well nourished Eyes: EOM intact bilaterally Respiratory: normal respiratory effort, lungs clear to auscultation Cardiovascular: RRR, no murmur, no edema Gastrointestinal (Abdomen): Inspection/Auscultation: normal bowel sounds Percussion/Palpation: + abdomen tender (RUQ) Skin: no rashes, warm and dry Psychiatric: A+Ox3, euthymic affect Results & Data Results & Data ([facility]) Vital Signs (Past 12 Hours) Vital Signs Temp Pulse Resp BP BP Pulse Ox 01/28/20 07:44 36.7 C 68 16 116/62 97 01/27/20 23:45 37.2 C 84 14 107/59 L 96 Laboratory Results Abnormal lab results 01/28/20 01/28/20 Range/Units 05:53 05:53 RBC 3.57 L (4.7-6.1) M/uL Hgb 11.2 L (14.0-18.0) g/dL Hct 31.4 L (42-52) % [place] # (Auto) 0.67 H (0.11-0.59) K/uL Immature Gran # (Auto) 0.03 H (0.00-0.02) K/uL Chloride 110 H (98-107) mmol/L BUN 6 L (7-18) mg/dl BUN/Creatinine Ratio 7.6 L (10-20) Calcium 8.2 L (8.5-10.1) mg/dl Total Bilirubin 2.7 H (0.2-1) mg/dl Direct Bilirubin 0.3 H (0-0.2) mg/dl AST 11 L (15-37) U/L Alkaline Phosphatase 43 L (45-117) U/L Total Protein 5.9 L (6.4-8.2) gm/dl Albumin 2.7 L (3.4-5.0) gm/dl PG Care Time/CCT Total # of Minutes Spent Total Time Spent with Patient: Total time spent is greater than 50% in coordi nation of care (as documented) at patient's floor/unit and/or counseling patient: Coding Level of Care Code 20257 Subseq Hosp Care Lvl 3 Diagnoses Pancreatitis K85.91 Acute pancreatitis complication: uninfected necrosis Chronicity: acute Pancreatitis type: unspecified pancreatitis type Hyperbilirubinemia E80.6 (1) Pancreatitis Acute pancreatitis complication: uninfected necrosis Chronicity: acute Pancreatitis type: unspecified pancreatitis type Qualified Code(s): K85.91 - Acute pancreatitis with uninfected necrosis, unspecified
[2020-01-28] MEDS ORDERED: SINCALIDE 1.4 MCG in 0.9 % SODIUM CHLORIDE 100 ML IV SCH (12:00)
--- NOTE | 2020-01-28 13:41 | Nuclear Medicine Report ---
NM hepatobiliary EF CLINICAL HISTORY: 19 years-old Male with r/o acute cholecystitis. Acute pancreatitis with right uppe r quadrant abdominal pain TECHNIQUE: Following the intravenous administration of 5.0 mCi of technetium-99m Choletec, sequentia l abdominal images were obtained. In order to evaluate the contractile response of the gallbladder, 1.4 mcg of Kinevac was administered by slow intravenous infusion over 30 minutes starting approximate ly 60 minutes after the administration of the radiopharmaceutical. Sequential imaging was continued for 45 minutes after the start of the Kinevac infusion. COMPARISON: Right upper quadrant abdominal ultrasound 01/27/2020, CT abdomen pelvis 01/25/2020 FINDINGS: There is prompt, uniform accumulation of the tracer by the liver. There is normal filling of the int rahepatic ducts, common bile duct and gallbladder and normal excretion of the tracer into the duodenu m. There is decreased contraction of the gallbladder. The calculated gallbladder ejection fraction is 29% (normal >40%). There is moderate enterogastric reflux. IMPRESSION: 1. Decreased contractile response of the gallbladder to Kinevac infusion. 2. Moderate enterogastric reflux. ACT 112: Negative or not required by law. The above report was generated using voice recognition software. It may contain grammatical, syntax o r spelling errors. Electronically signed by: Jorge Melendez M.D. 01/28/2020 1:40 PM
--- NOTE | 2020-01-28 15:38 | Hospitalist Progress Note ---
Date of Service January 28, 2020 Assessment & Plan (1) Pancreatitis: Patient presents with acute left upper quadrant abdominal pain, nausea/vomiting, and chills and with fever here. Found to have acute pancreatitis in the tail the pancreas on an unenhanced CT scan-unable to identify if necrosis. Did have leukocytosis and lipase was elevated at 1113. Gallbladder appears normal and no bile or pancreatic duct dilatation on CT of the abdomen/pelvis He drank 3 alcoholic beverages 3 days prior to the symptoms, but otherwise reports no alcohol use for a long time before that. His triglycerides here are normal at 63. His calcium level was normal on admission. There is no family history of pancreatitis and he has no prior personal history of pancreatitis or gallbladder issues. Total bilirubin was elevated on admission at 2.5 and continues to rise each day, now 4.6--> but it is all indirect bilirubin. Otherwise LFTs are all normal. Lipase has trended downward to normal Leukocytosis at 15 and now trending downward since being on abx to 13k BCxs NGTD Fever resolved just a low grade temp last evening MRCP 01/25 with pancreatitis and possible acute adrian, no obstruction, no divisum RUQ US shows sludge, normal CBD, mild thickened wall and distension, possible acute adrian HIDA showing reduced EF Overall feeling better now on abx, IVFs, pain meds -Clear liquid diet -continue pain control w/ Toradol 15 mg IV every 6 hours as needed, IV dilaudid prn -Continue IVF, decrease to 100 ml/hr -BC no growth -continue Cipro and Flagyl -Consult gastroenterology appreciated (2) Hyperbilirubinemia: As above, all indirect and could be Gilbert's with rising TBili in setting of fasting and stress No obstruction on imaging noted and all other LFTs normal Bili now trending down (3) Leukocytosis: Resolved -follow CBC (4) Fever: As above, could be related to pancreatitis or acute cholecystitis no other signs/symptoms of infection Improving -follow blood cultures -continue empiric abx as above -No exposures to COVID so does not seem likely especially given that he has findings to explain his symptoms otherwise (5) Anxiety about health: worried about being in hospital, anxious -add hydroxyzine prn -he wants to focus on calming strategies prior to trying medication -advised ambulation around halls (6) DVT prophylaxis: SQ Lovenox Disposition-continued stay Admission and Anticipated Discharge Date Admission Date: January 25, 2020 Subjective Mr. Hall is feeling better today though with some epigastric tenderness yet. No nausea or vomiting. No bowel movement ROS Constitutional: no chills, aches, sweats or fever Respiratory: no sob,cough, sputum, or wheezing Cardiac: no chest pain, palpitations, edema, orthopnea or lightheadedness GI: see HPI : no dysuria or hesitancy Extremities: no joint pain or weakness Skin: no rash All other systems reviewed and negative Physical Exam Physical Exam: General: no distress Eyes: normal inspection, PERLL Respiratory: chest non tender, clear to auscultation, normal breath sounds, no respiratory distress, no accessory muscle use Cardiac: regular rate and rhythm, no rub or gallop, no murmur, no edema, no jvd GI/: active bowel sounds,epigastric tenderness to palpation, soft, non distended Extremities: normal range of motion, normal strength, non tender Neuro/Psych: alert and oriented x 3, normal mood and affect Skin: normal color, dry Results & Data Results & Data ([facility]) Vital Signs (Past 12 Hours) Vital Signs Temp Pulse Resp BP Pulse Ox 01/28/20 15:04 36.9 C 68 18 119/74 95 01/28/20 07:44 36.7 C 68 16 116/62 97 PG Care Time/CCT Total # of Minutes Spent Total Time Spent with Patient: Total time spent is greater than 50% in coordination of care (as documented) at patient's floor/unit and/or counseling patient: Coding Level of Care Code 33064 Subseq Hosp Care Lvl 2 Diagnoses Pancreatitis K85.91 Acute pancreatitis complication: uninfected necrosis Chronicity: acute Pancreatitis type: unspecified pancreatitis type Hyperbilirubinemia E80.6 Leukocytosis D72.829 Fever R50.9 Anxiety about health F41.8 DVT prophylaxis Z29.9 (1) Pancreatitis Acute pancreatitis complication: uninfected necrosis Chronicity: acute Pancreatitis type: unspecified pancreatitis type Qualified Code(s): K85.91 - Acute pancreatitis with uninfected necrosis, unspecified
--- NOTE | 2020-01-28 18:29 | Surgery Consultation ---
Date of Consultation January 28, 2020 Assessment & Plan (1) Dysfunctional gallbladder: pt was admitted to hospital for acute abdominal pain, IMP: pancreatitis, dysfunction gallbladder Plan, most likely small gallstone caused pt's symptoms, I recommend to do laparoscopic cholecystectomy, D/W benefits, risks and alternatives of the surgery, pt wants to postponed surgery now, F/W out-patient, pt can be discharged tomorrow, sign off today, please call with questions, , F/U 2 weeks, Supervising Physician Co-Signing Physician Notes Agree with TRACEE Osorio as above Abd: Soft, NT, ND, +BS Patient still with complaints of pain, though abd exam is benign Advance to low fat diet Consult surgery due to abnormal HIDA, however, no need for urgent surgical intervention at present Continue supportive care History of Present Illness Attending Physician: Andrea Abbasi DO History of Present Illness Primary Care Provider: [facility] 19-year-old male presents complaining of abdominal pain which began last evening at approximately 8 PM. Patient states the pain is associated with chills and vomiting. Vomitus any coffee grounds or foodstuffs. It was mostly mucousy. the pain radiates to the left flank and also to the left groin. Patient states when he stands, the pain seems to radiate across the upper abdomen. He states he did have some dysuria last evening, but none today. He denies any documented fever. Patient denies any current hematuria, dysuria, urinary frequency, or urinary hesitancy. There is no chest pain or dyspnea. There is been no diarrhea or constipation. Last bowel movement was yesterday. Patient rates the pain a 9/10 and describes it as sharp. He did take Tylenol at 5 AM without relief. He denies any recent trauma or trauma to the area and he has had modest alcohol intake 3 [place] Seltzers in the last 2 days not any [id number] medication I ( Christiano alonso MD ) got a call for consult dysfunction gallbladder, and pancreatitis, I reviewed pt's H/P, labs, MRCP,U/S with pt, pt feels better, less abdominal pain, no nausea, no vomiting, no fever. Allergies Allergy/AdvReac Type Severity Reaction Status Date / Time No Known Allergies Allergy Unverified 01/25/20 13:36 Home Medications Home Medications Medication Instructions Recorded Confirmed Type acetaminophen [Tylenol Extra 1,000 mg PO Q6H PRN 01/25/20 01/25/20 History Strength] fexofenadine [Alyce Allergy] 60 mg PO Q12H 01/25/20 01/25/20 History Past Med/Surg History Medical History No pertinent past medical history Social History Preferred Language: Kosovan Communication Ability: Effective Personal Support Worker Required: No Beliefs That Will Affect Care: None Current Living Situation: Other Current Living Situation Comment: friend Other Information That Helps Us Care for You: No Feels Safe at Home: Yes Safety Concerns: Feels Safe At This Time Smoking Status: Never smoker Hx Alcohol Use: Yes Alcohol type: beer Hx Substance Use: No Review of Systems Review of Systems: Mild to moderate distress and fatigue no headache, blurry or double vision no speech or swallowing issues no chest pain, pressure or palpitations no shortness of breath, cough or wheezes Left upper quadrant abdominal pain, with mild nausea prehospital vomiting Intermittent dysuria, without hematuria or frequency no focal joint pain or swelling Left CVA tenderness without radicular pain no bruising, bleeding or rashes no focal signs of weakness or numbness or altered sensation no complaints or anxiety or depression.. Allergies Allergy/AdvReac Type Severity Reaction Status Date / Time No Known Allergies Allergy Unverified 01/25/20 13:36 Home Medications Home Medications Medication Instructions Recorded Confirmed Type acetaminophen [Tylenol Extra 1,000 mg PO Q6H PRN 01/25/20 01/25/20 History Strength] fexofenadine [Alyce Allergy] 60 mg PO Q12H 01/25/20 01/25/20 History Patient History Medical History No pertinent past medical history Social History Preferred Language: Kosovan Communication Ability: Effective Personal Support Worker Required: No Beliefs That Will Affect Care: None Current Living Situation: Other Current Living Situation Comment: friend Other Information That Helps Us Care for You: No Feels Safe at Home: Yes Safety Concerns: Feels Safe At This Time Smoking Status: Never smoker Hx Alcohol Use: Yes Alcohol type: beer Hx Substance Use: No Review of Systems Review of Systems: All systems reviewed & are unremarkable except as noted in HPI & below Constitutional: as per Subjective / HPI Eyes: as per Subjective / HPI Ear, Nose, Mouth, Throat: as per Subjective / HPI Respiratory: as per Subjective / HPI Cardiovascular: as per Subjective / HPI Gastrointestinal: as per Subjective / HPI Genitourinary: + as per Subjective / HPI Musculoskeletal: as per Subjective / HPI Integumentary: as per Subjective / HPI Neurologic: as per Subjective / HPI Psychiatric: as per Subjective / HPI anxiety, Endocrine: as per Subjective / HPI Hematologic / Lymphatic: as per Subjective / HPI Physical Exam Constitutional: WD/WN, vitals as above well developed and well nourished Eyes: PERRL, conjunctivae normal, anicteric sclerae ENMT: external ear and nose normal, oropharynx normal Neck: trachea midline, no thyromegaly Respiratory: normal respiratory effort, lungs clear to auscultation Cardiovascular: RRR, no murmur, no edema Rate/Rhythm: regular rate and regular rhythm Gastrointestinal (Abdomen): normal bowel sounds, soft, nontender, no hepatosplenomegaly Nt, ND, BS +, Musculoskeletal: no cyanosis or clubbing, extremities motor strength 5/5 Skin: no rashes, warm and dry Neurologic: patellar DTR's 2+ bilat, sensation intact Psychiatric: Orientation: alert and oriented x 3 Results & Data Vital Signs (Past 12 Hours) Vital Signs Temp Pulse Resp BP Pulse Ox 01/28/20 15:04 36.9 C 68 18 119/74 95 01/28/20 07:44 36.7 C 68 16 116/62 97 Laboratory Results Abnormal lab results 01/28/20 01/28/20 Range/Units 05:53 05:53 RBC 3.57 L (4.7-6.1) M/uL Hgb 11.2 L (14.0-18.0) g/dL Hct 31.4 L (42-52) % [place] # (Auto) 0.67 H (0.11-0.59) K/uL Immature Gran # (Auto) 0.03 H (0.00-0.02) K/uL Chloride 110 H (98-107) mmol/L BUN 6 L (7-18) mg/dl BUN/Creatinine Ratio 7.6 L (10-20) Calcium 8.2 L (8.5-10.1) mg/dl Total Bilirubin 2.7 H (0.2-1) mg/dl Direct Bilirubin 0.3 H (0-0.2) mg/dl AST 11 L (15-37) U/L Alkaline Phosphatase 43 L (45-117) U/L Total Protein 5.9 L (6.4-8.2) gm/dl Albumin 2.7 L (3.4-5.0) gm/dl Diagnostic Findings NM hepatobiliary EF CLINICAL HISTORY: 19 years-old Male with r/o acute cholecystitis. Acute pancreatitis with right upper quadrant abdominal pain TECHNIQUE: Following the intravenous administration of 5.0 mCi of technetium- 99m Choletec, sequential abdominal images were obtained. In order to evaluate the contractile response of the gallbladder, 1.4 mcg of Kinevac was administered by slow intravenous infusion over 30 minutes starting approximately 60 minutes after the administration of the radiopharmaceutical. Sequential imaging was continued for 45 minutes after the start of the Kinevac infusion. COMPARISON: Right upper quadrant abdominal ultrasound 01/27/2020, CT abdomen pelvis 01/25/2020 FINDINGS: There is prompt, uniform accumulation of the tracer by the liver. There is normal filling of the intrahepatic ducts, common bile duct and gallbladder and normal excretion of the tracer into the duodenum. There is decreased contraction of the gallbladder. The calculated gallbladder ejection fraction is 29% (normal >40%). There is moderate enterogastric reflux. IMPRESSION: 1. Decreased contractile response of the gallbladder to Kinevac infusion. 2. Moderate enterogastric reflux. US gallbladder CLINICAL HISTORY: possible acute cholecystitis COMPARISON STUDY: CT of the abdomen and pelvis January 25, 2020. MRCP January 26, 2020. FINDINGS: Liver is sonographically normal. No gallstones are identified. There is sludge within the gallbladder. Mild gallbladder wall thickening is noted. No gallstones were identified. Pericholecystic fluid is noted. There is no biliary ductal dilatation. The common bile duct measures 5 mm in caliber. There is no right hydronephrosis. IMPRESSION: 1. Sludge within the gallbladder. Mild gallbladder wall thickening. No gallstones identified. These findings are not strongly suggestive of acute c holecystitis although a hepatobiliary scan could be obtained. 2. Peripancreatic fluid consistent with acute pancreatitis as shown on CT and MRI. 3. No biliary ductal dilatation. MRCP CLINICAL HISTORY: pancreatitis,hyperbilirubinemia TECHNIQUE: Utilizing a 1.5 Bev magnet and dedicated coil, multiplanar, multiecho imaging of the upper abdomen was performed utilizing heavily T2 weighted pulsing sequences without IV contrast. COMPARISON STUDY: CT of the abdomen and pelvis January 25, 2020. FINDINGS: There is no intra or extrahepatic biliary ductal dilatation. The common bile duct measures 5 mm in caliber. No common bile duct calculi are identified. The course and caliber of the main pancreatic duct is normal. Fluid centered on the pancreatic tail is again noted. This extends into the left paracolic gutter and anterior pararenal space. This is similar to prior CT. No peripancreatic fluid collection is present. No definite gallstones are identified. There is trace pericholecystic fluid. Gallbladder is mildly distended. There is equivocal sludge within the gallbladder. No abdominal lymphadenopathy is noted. The caliber of visualized small and large bowel are normal. IMPRESSION: 1. No biliary ductal dilatation. No common bile duct calculi. 2. No significant change in findings consistent with acute pancreatitis. CT OF THE ABDOMEN AND PELVIS WITHOUT CONTRAST CLINICAL HISTORY: left flank pain COMPARISON STUDY: No previous studies for comparison. TECHNIQUE: Axial images of the abdomen and pelvis were obtained without IV contrast. Images were reviewed in the axial, sagittal, and coronal planes. Automated exposure control was utilized for the study. A dose lowering technique was utilized adhering to the principles of ALARA. FINDINGS: Lung bases are unremarkable. No pneumatosis, free air or portal venous gas is present. The bilateral renal pyramids are hyperdense. There are no ureteral calculi. There is no hydronephrosis or hydroureter. Evaluation of the abdomen and pelvis is suboptimal on this unenhanced examination. The liver, spleen, adrenal glands are unremarkable. Hypodensity within the pancreatic tail is noted. There is moderate left abdominal fluid centered on the pancreatic tail that extends into the paracolic gutter and left anterior pararenal space. No well-defined fluid collection is noted. A more well-defined 1.8 cm hypodense focus within the pancreatic tail is noted. There is no biliary or pancreatic ductal dilatation. The appendix is normal. There is no evidence for a bowel obstruction. Amount of fluid within the pelvis is noted. There are no suspicious osseous lesions. IMPRESSION: 1. Findings consistent with acute pancreatitis centered on the pancreatic tail. Moderate associated fluid. Hypodensity within the pancreatic tail. Pancreatic necrosis cannot be assessed for on unenhanced exam. No peripancreatic fluid collection. 2. Hyperdense bilateral renal pyramids. No ureteral calculi. No hydronephrosis.
[2020-01-28] MEDS: ENOXAPARIN INJ 40 MG/0.4 ML SYR SQ SCH (20:14)
[2020-01-29] MEDS: LACTATED RINGER'S 1,000 ML IV SCH ×2 (02:20→10:46)
[2020-01-29] MEDS: CIPROFLOXACIN / D5W 400 MG/200 ML BAG IV SCH (02:21)
[2020-01-29] MEDS: HYDROmorphone INJ 0.5 MG/0.5 ML SYR IV PRN (02:26)
[2020-01-29 05:40] LABS: Hematocrit (blood only) 36.9 % (42-52); Hemoglobin 12.8 g/dL (14.0-18.0); Mean Corpuscular Hemoglobin 30.8 pg (25-34); Mean Corpuscular Hgb Conc 34.7 g/dL (32-36); Mean Corpuscular Volume 88.7 fL (80-100); Mean Platelet Volume 10.7 fL (7.4-10.4); Platelet Count 196 K/uL (130-400); RDW Coefficient of Variation 12.4 % (11.5-14.5); RDW Standard Deviation 39.9 fL (36.4-46.3); Red Blood Count 4.16 M/uL (4.7-6.1); White Blood Count 6.22 K/uL (4.8-10.8)
[2020-01-29] MEDS: metroNIDAZOLE 500 MG/100 ML BAG IV SCH (06:06)
[2020-01-29 06:22] LABS: BUN Creatinine Ratio 7.6 (10-20); Calcium 8.7 mg/dl (8.5-10.1); Creatinine Clr Calc Pharmacy 141.3 ml/min; Est GFR (African American) 147.5; Est GFR (Non-African American) 127.3; Potassium 3.7 mmol/L (3.5-5.1)
[2020-01-29 09:33] LABS: Albumin Level 3.2 gm/dl (3.4-5.0); Bilirubin Direct 0.4 mg/dl (0-0.2); Total Protein 6.9 gm/dl (6.4-8.2)
--- NOTE | 2020-01-29 09:38 | Discharge Summary ---
Date of Service January 29, 2020 Admission HPI Per Admitting Provider 19-year-old male presents complaining of abdominal pain which began last evening at approximately 8 PM. Patient states the pain is associated with chills and vomiting. Vomitus any coffee grounds or foodstuffs. It was mostly mucousy. the pain radiates to the left flank and also to the left groin. Patient states when he stands, the pain seems to radiate across the upper abdomen. He states he did have some dysuria last evening, but none today. He denies any documented fever. Patient denies any current hematuria, dysuria, urinary frequency, or urinary hesitancy. There is no chest pain or dyspnea. There is been no diarrhea or constipation. Last bowel movement was yesterday. Patient rates the pain a 9/10 and describes it as sharp. He did take Tylenol at 5 AM without relief. He denies any recent trauma or trauma to the area and he has had modest alcohol intake 3 [place] Seltzers in the last 2 days not any [id number] medication Principal Diagnosis Pancreatitis Discharge Exam Constitutional WD/WN, vitals as above Respiratory normal respiratory effort, lungs clear to auscultation Cardiovascular RRR, no murmur, no edema Gastrointestinal (Abdomen) Inspection/Auscultation: abdomen normal to inspection and normal bowel sounds; abdomen not distended Percussion/Palpation: abdomen soft; abdomen nontender Musculoskeletal no cyanosis or clubbing, extremities motor strength 5/5 Skin no rashes, warm and dry Neurologic moves all extremities and awake Psychiatric A+Ox3, euthymic affect Discharge Data Allergies Allergy/AdvReac Type Severity Reaction Status Date / Time No Known Allergies Allergy Unverified 01/25/20 13:36 Consultations 01/25/20 14:36 ED Decision to Admit Stat 01/26/20 13:04 Consult Gastroenterology Routine Ordered Studies 01/25/20 13:10 CT abd pelvis wo con Stat 01/26/20 10:22 MR MRCP Urgent 01/27/20 07:05 US gallbladder Urgent Hospital Course (1) Pancreatitis: Patient presents with acute left upper quadrant abdominal pain, nausea/vomiting, and chills and with fever here. Found to have acute pancreatitis in the tail the pancreas on an unenhanced CT scan-unable to identify if necrosis. Did have leukocytosis and lipase was elevated at 1113. Gallbladder appears normal and no bile or pancreatic duct dilatation on CT of the abdomen/pelvis He drank 3 alcoholic beverages 3 days prior to the symptoms, but otherwise reports no alcohol use for a long time before that. His triglycerides here are normal at 63. His calcium level was normal on admission. There is no family history of pancreatitis and he has no prior personal history of pancreatitis or gallbladder issues. Total bilirubin was elevated Otherwise LFTs are all normal. Lipase has trended downward to normal Leukocytosis at 15 and now wnl BCxs NGTD Fever resolved MRCP 01/25 with pancreatitis and possible acute adrian, no obstruction, no divisum RUQ US shows sludge, normal CBD, mild thickened wall and distension, possible acute adrian HIDA showing reduced EF Tolerating low fat diet with some mild nausea Abdomen soft and non tender to examination today -will discontinue Cipro and Flagyl for home as BC did not grow anything -Consult gastroenterology and surgery - patient will likely need to have his gallbladder out but this is non urgent. At present, Mr. Hall does not want to go forward with the surgery. Will have him follow up with his pcp. - discussed s/s that would mean he needs to return to the hospital and he verbalized understanding (2) Hyperbilirubinemia: As above, all indirect and could be Gilbert's with rising TBili in setting of fasting and stress No obstruction on imaging noted and all other LFTs normal Bili now trending down (3) Leukocytosis: Resolved -follow CBC (4) Fever: As above, could be related to pancreatitis or acute cholecystitis no other signs/symptoms of infection - BC ngtd -abx as above -No exposures to COVID so does not seem likely especially given that he has findings to explain his symptoms otherwise (5) Anxiety about health: worried about being in hospital, anxious -add hydroxyzine prn -he wants to focus on calming strategies prior to trying medication -advised ambulation around halls (6) DVT prophylaxis: SQ Lovenox Total Time Total Time Spent Total Time Spent (In Minutes): greater than 30 minutes Discharge Plan Discharge Items Patient Disposition: Home - Self-Care Reason For Visit: PANCREATITIS Discharge Diagnosis: Pancreatitis Condition on Discharge: Good Activity: Resume your previous activity Activity Comment: gradually as tolerated Non-emergency contact: Primary Care Provider Call non-emergency contact if: you have any medication questions Follow-up/Referrals: [facility] [Primary Care Provider] - 02/04/20 3:00 pm (You have an appoinment with Dr. Carter at [facility] on 02/04/2020 at 3:00PM. If you can not keep this appoinment please call [phone].) Diet: Low Fat Diet Comment: advance your diet slowly as tolerated Addtl Attending Provider Instructions: (1) Pancreatitis: A CT scan on admission found you to have acute pancreatitis in the tail of the pancreas Your triglycerides here are normal at 63 (elevated triglycerides are a risk factor for pancreatitis). Your blood cultures were negative for bacteria in your blood. An MRI of your pancreatic/gallbladder and their ducts (MRCP) 01/25 showed pancreatitis without obstruction Right upper quadrant ultrasound shows bile sludge in the gallbladder, but again, normal common bile duct Your HIDA scan showed a reduced ejection fraction of bile from your gallbladder You may require surgery to remove your gallbladder as it's sluggish function may be what lead to your pancreatitis. Please follow up with your primary care provider within about a week and discuss further follow up (2) Hyperbilirubinemia: Likely Gilbert's disease which is a benign finding where your bilirubin rises with stress or illness If you have increased abdominal pain or nausea and vomiting, you should return to the emergency department. Pending Studies at Discharge: No Stand-Alone Forms: My [facility], Smoking Cessation Medications and DC Order Prescriptions: Continued fexofenadine [Alyce Allergy] 60 mg Tablet 60 mg PO Q12H RF: 0 acetaminophen [Tylenol Extra Strength] 500 mg Tablet 1,000 mg PO Q6H PRN (Reason: Pain) RF: 0 Discharge Orders: Discharge Order (Routine); Ordered 01/29/20 Ordered By: Mai Mar/Other Patient Handouts: Discharge Instructions for Acute Pancreatitis Admission Data Admit Date/Time: 01/25/20 15:23 Attending Provider: Andrea Abbasi Admit Provider: Elroy Cook Primary Care Provider: [facility] Other Providers: Elroy Cook ; Dallas Perez Other Interventions: Discharge Summary Assessment (RN) Last Done: 01/29/20 10:19 DC Date/Time DO NOT enter until pt leaves facility: 01/29/20 11:11 Supervising Physician Co-Signing Physician Notes Attending note: patient seen and examined with Mai EASLEY. I agree with her discharge summary. I personally reviewed the labs and imaging findings. Patient feels well, no abdominal pain, tolerated food this morning discussed follow up with surgeon at a later date to get gall bladder removed - Acute pancreatitis: resolved most likely etiology is small gall stone that passed lipase back to normal, LFT normalized tolerated diet will follow up with general surgery in clinic to discuss cholecystectomy to prevent another episode Coding Level of Care Code D/C Day Management >30 mins Diagnoses Pancreatitis K85.91 Acute pancreatitis complication: uninfected necrosis Chronicity: acute Pancreatitis type: unspecified pancreatitis type Hyperbilirubinemia E80.6 Leukocytosis D72.829 Fever R50.9 Anxiety about health F41.8 DVT prophylaxis Z29.9
== END 2020-01-29 11:11 | disposition home or self-care (01) | DRG 439 ==
LOC: ED 12:41 → 3N 15:23 → SUATTDRO 15:23 → 3N 16:59